=== PATIENT | male | born 1975 | race Caucasian/White ===

== ENCOUNTER 2022-03-14 23:31 | Emergency (ER) | payer OTHER ==
[2022-03-14 23:40] VITALS: BP 132/81
[2022-03-15] MEDS ORDERED: ACETAMINOPHEN 325 MG TABLET PO STA (00:27)
--- NOTE | 2022-03-15 00:31 | ED Physician Documentation ---
PD HPI HEENT - Stated complaint Stated Complaint: MOUTH PX - Chief complaint Chief Complaint: Heent - History obtained from History obtained from: Patient - Additional information Additional information: Patient is a 46-year-old male presenting for evaluation of left upper dental pain that has been present for 4 days. He is been using Motrin with some improvement. He denies fevers Or difficulty swallowing.He does not have a dentist in the area. Review of Systems Constitutional: denies: Fever Nose: denies: Congestion Cardiac: denies: Chest pain / pressure Respiratory: denies: Dyspnea GI: denies: Abdominal Pain : denies: Dysuria Neurologic: denies: Headache PD PAST MEDICAL HISTORY - Present Medications Home Medications: Ambulatory Orders Medication Instructions Recorded Confirmed buprenorphine HCL [Buprenorphine 8 mg SL BID 03/14/22 03/14/22 HCl] clonazePAM [Clonazepam] 0.5 mg PO BID 03/14/22 03/14/22 Amoxicillin 500 mg PO TID #30 cap 03/15/22 - Allergies Allergies/Adverse Reactions: Allergies Allergy/AdvReac Type Severity Reaction Status Date / Time bee venom protein (honey bee) Allergy Anaphylaxis Verified 03/14/22 23:40 PD ED PE NORMAL - General General: Alert and oriented X 3, No acute distress, Well developed/nourished - HEENT HEENT: Atraumatic, Other (No oral abscess or swelling, , Normal speech; Tenderness to tooth 14 and 15 and mild swelling to associated gumline With no fluctuance; No facial swelling or erythema) - Neck Neck: Supple, no meningeal sign - Respiratory Respiratory: No respiratory distress - Derm Derm: Warm and dry - Neuro Neuro: Normal speech Results - Vitals Vitals: Vital Signs - 24 hr 03/14/22 23:37 Temperature 36.4 C L Heart Rate 66 Respiratory 18 Rate Blood Pressure 132/81 H O2 Saturation 98 Oxygen O2 Source Room air PD Medical Decision Making - ED course ED course: Patient presenting for evaluation of dental pain. No visible fluid collection or abscess. No signs of cellulitis or deep space infection. Vital signs appear stable. The patient will be started on p.o. antibiotics. Patient given list of dental resources and advised on need for close follow-up with dentist. He is also aware of strict return precautions. Departure - Departure Disposition: Home, Self Care Clinical Impression: Pain due to dental caries Condition: Stable Instructions: ED Tooth Pain Prescriptions: Amoxicillin 500 mg PO TID #30 cap Comments: I have sent a prescription for an antibiotic to [facility] in [place].Please return to the emergency department with any worsening symptoms. It is very important that you follow-up with a dentist. When it comes to dental problems like yours, the emergency department can only offer a short-term solution to your long-term problem. A couple of low cost options for dental care include: [facility] in [place], calls [phone] for an appointment Or [facility] in [place], call [phone] for an appointment. Discharge Date/Time: 03/15/22 00:44
[2022-03-15] MEDS ORDERED: AMOXICILLIN 250 MG Prepack 6 PO SCH (01:00)
== END 2022-03-15 00:44 | disposition home or self-care (01) ==
LOC: ED 23:31
DX: K02.9 Dental caries, unspecified (principal)
CPT/HCPCS: 99282; 99283; A9270

== ENCOUNTER 2022-10-23 13:27 | Outpatient (CLI) | payer OTHER ==
--- NOTE | 2022-10-23 16:21 | XRAY Report ---
PROCEDURE: Lumbar Spine 2 View INDICATIONS: SCIATICA,LT SIDE TECHNIQUE: 2 views of the lumbar spine were acquired. COMPARISON: None. FINDINGS: Bones: 5 [id number] vertebrae are present. Disc space narrowing at T12-L1, L1-2, and L5-S1. Le ftward curvature of the thoracolumbar spine. There is normal bony alignment. No vertebral body compr ession fractures. No suspicious bony lesions. Soft tissues: Overlying bowel gas pattern is normal. No suspicious soft tissue calcifications. IMPRESSION: 1. Degenerative disc disease at T12-L1, L1-2, and L5-S1. 2. No acute abnormality. Reviewed by: Tono Iqbal on 10/23/2022 4:20 PM PDT Approved by: Tono Iqbal on 10/23/2022 4:20 PM PDT Station ID: [id number]
== END 2022-10-23 13:28 | disposition home or self-care (01) ==
LOC: DI 13:27
PROVIDERS: ATTEND Emergency Medicine
DX: M54.32 Sciatica, left side (principal); M51.35 Other intervertebral disc degeneration, thoracolumbar region; M51.36 Other intervertebral disc degeneration, lumbar region; M51.37 Other intervertebral disc degeneration, lumbosacral region

== ENCOUNTER 2023-01-04 09:45 | Outpatient (CLI) | payer OTHER ==
--- NOTE | 2023-01-04 15:04 | MRI Report ---
PROCEDURE: LUMBAR SPINE WO INDICATIONS: LOW BACK PAIN TECHNIQUE: Noncontrast sagittal T1 spin echo and T2 fast echo, sagittal STIR, axial T1 and T2 fast spin echo thr ough the lumbar spine. In cases with scoliosis, additional coronal T2 fast spin echo may be performe d. COMPARISON: X-ray lumbar spine 10/23/2022 FINDINGS: Image quality: Excellent. Alignment and Curvature: There is normal bony alignment. Bone Marrow: Marrow is of normal overall signal. No acute vertebral body compression fractures. Spinal Cord: Conus medullaris terminates at the L1 level. Visualized cord demonstrates normal signa l and size. Paraspinous Soft Tissues: No paravertebral masses. T12-L1: Intervertebral disc height loss. No central canal or neuroforaminal stenosis. L1-L2: Intervertebral disc height loss. No central canal or neuroforaminal stenosis. L2-L3: Mild disc desiccation. No central canal or neuroforaminal stenosis. L3-L4: Mild disc desiccation. No central canal or neuroforaminal stenosis. L4-L5: Mild disc desiccation. No central canal or neuroforaminal stenosis. L5-S1: Disc desiccation and height loss. Small posterior disc bulge. Facet arthropathy. No central canal stenosis. Mild bilateral neuroforaminal stenosis. IMPRESSION: Mild degenerative changes of the lumbar spine as described above. There is mild bilateral neuroforami nal stenosis at L5-S1. Otherwise, there is no central canal or neuroforaminal stenosis. Reviewed by: Rafael Dolan MD on 01/04/2023 3:03 PM PDT Approved by: Rafael Dolan MD on 01/04/2023 3:03 PM PDT Station ID: [id number]
== END 2023-01-04 09:46 | disposition home or self-care (01) ==
LOC: DI 09:45
PROVIDERS: ATTEND Family Medicine
DX: M51.36 Other intervertebral disc degeneration, lumbar region (principal); M47.817 Spondylosis without myelopathy or radiculopathy, lumbosacral region; M51.37 Other intervertebral disc degeneration, lumbosacral region; M48.07 Spinal stenosis, lumbosacral region

== ENCOUNTER 2023-05-15 14:53 | Outpatient (CLI) | payer OTHER | END 2023-05-15 14:54 | disposition EMS.NT | LOC: EMS 14:53 | DX: M54.50 Low back pain, unspecified (principal) | CPT/HCPCS: A0425; A0429 ==

== ENCOUNTER 2023-05-15 15:24 | Emergency (ER) | payer OTHER ==
[2023-05-15] MEDS: SODIUM CHLORIDE 0.9% IV STA (16:57)
[2023-05-15] MEDS: KETAMINE IV STA (16:57)
[2023-05-15] MEDS: oxyCODONE 5 MG TABLET PO STA (18:12)
--- NOTE | 2023-05-15 18:51 | ED Physician Documentation ---
PD HPI BACK PAIN - Stated complaint Stated Complaint: LOW BACK PX - Chief complaint Chief Complaint: Back Pain - History obtained from History obtained from: Patient, EMS - History of Present Illness Timing - onset: How many days ago (several days) Timing - duration: Days (several) Timing - details: Gradual onset Pain level max: 10 Pain level now: 10 Location: Lower, Right Quality: Pain, Spasm, Sharp Associated symptoms: No: Fever, Weakness, Numbness, Incontinent of urine, Unable to urinate, Hematuria, Incontinent of stool Improves with: Rest Worsened by: Movement Contributing factors: No: Lifting, Twisting, Trauma, Anticoagulated, Cancer, IVDA - Additional information Additional information: 47-year-old male presents to the emergency department with right low back pain. He states that he has had left-sided back pain for about 7 months, recently started having right-sided back pain as well. Radiates down the right leg. Worse with movement, better with rest. Denies any recent trauma. No IV drug use. He was seen at [facility] yesterday, started on steroids and muscle relaxants. States the pain has continued today. Patient is on Buprenorphine, 2 mg at home but not Suboxone. No falls. No trauma. Review of Systems Constitutional: denies: Fever, Chills GI: denies: Vomiting, Diarrhea Skin: denies: Rash Musculoskeletal: denies: Neck pain Neurologic: denies: Focal weakness, Numbness, Headache, Head injury PD PAST MEDICAL HISTORY - Past Medical History Past Medical History: Yes Musculoskeletal: Chronic back pain - Past Surgical History Past Surgical History: Yes - Present Medications Home Medications: Ambulatory Orders Medication Instructions Recorded Confirmed buprenorphine HCL [Buprenorphine 8 mg SL BID 03/14/22 05/15/23 HCl] clonazePAM [Clonazepam] 0.5 mg PO BID 03/14/22 05/15/23 oxyCODONE [Roxicodone] 5 - 10 mg PO Q6H PRN #14 tablet 05/15/23 MDD 6 - Allergies Allergies/Adverse Reactions: Allergies Allergy/AdvReac Type Severity Reaction Status Date / Time bee venom protein (honey bee) Allergy Anaphylaxis Verified 05/15/23 15:43 - Social History Does the pt smoke?: No Smoking Status: Never smoker Does the pt drink ETOH?: No Does the pt have substance abuse?: No - Immunizations Immunizations are current?: Yes - POLST Patient has POLST: No PD ED PE NORMAL - Vitals Vital signs reviewed: Yes - General General: Alert and oriented X 3 - HEENT HEENT: Moist mucous membranes - Neck Neck: Supple, no meningeal sign - Cardiac Cardiac: RRR, Strong equal pulses - Respiratory Respiratory: No respiratory distress, Clear bilaterally - Abdomen Abdomen: Soft, Non tender, Non distended - Back Back: No spinal TTP (No midline tenderness to palpation or percussion. No step- off or deformity. No paraspinal spasm) - Derm Derm: Warm and dry - Extremities Extremities: No edema, No calf tenderness / cord - Neuro Neuro: Alert and oriented X 3, No motor deficit, No sensory deficit, Other (Normal bilateral lower extremity patellar and ankle jerk reflexes. Normal great toe extension bilaterally. no saddle anesthesia) Results - Vitals Vitals: Vital Signs - 24 hr 05/15/23 05/15/23 05/15/23 15:36 17:10 19:04 Temperature 36.0 C L Heart Rate 67 65 81 Respiratory 16 17 18 Rate Blood Pressure 151/77 H 130/86 H 154/82 H O2 Saturation 100 99 98 Oxygen O2 Source Room air PD Medical Decision Making - ED course Complexity details: re-evaluated patient, considered differential (No cauda equina, no spinal epidural abscess, no fracture, no aortic dissection or evidence of aneursym rupture), d/w patient ED course: Patient is a 47-year-old male with right-sided back pain. Started on steroids and muscle relaxants yesterday at [facility]. He is on a low-dose of buprenorphine but not Suboxone. He was given a dose of IV ketamine, pain greatly improved. He was also given a dose of oxycodone. Pain nearly resolved. He ambulates with a cane and appears to be ambulating at his baseline. No evidence of cauda equina, epidural abscess. Will place on pain medication for home. Will have him follow-up with his PCP for further care. Patient ambulated out of the emergency department under his own power with his cane. No focal neurological deficits. Patient counseled regarding signs and symptoms for which I believe and urgent re-evaluation would be necessary. Patient with good understanding of and agreement to plan and is comfortable going home at this time This document was made in part using voice recognition software. While efforts are made to proofread this document, sound alike and grammatical errors may occur. Departure - Departure Disposition: 01 Home, Self Care Clinical Impression: Back spasm Sciatica Qualifiers: Laterality: right Qualified Code(s): M54.31 - Sciatica, right side Condition: Good Instructions: ED Spasm Back No Trauma, ED Sciatica Follow-Up: NIDA NAVARRO, DO [Primary Care Provider] - Within 1 week Prescriptions: oxyCODONE [Roxicodone] 5 - 10 mg PO Q6H PRN #14 tablet MDD 6 PRN Reason: pain Comments: Please follow-up with your doctor for further care. Please return if you worsen. I would continue your medications as previously prescribed. You can discuss with your doctor stopping the buprenorphine. We have sent a prescription for oxycodone to [facility] pharmacy for you. Continue the medications as prescribed by [facility] yesterday. Continue the steroids. I am prescribing a short course of narcotic pain medication for you. These are potentially dangerous and addictive medications that should be used carefully. These medications may constipate you. Take an [id number] stool softener (docusate) twice daily with plenty of water while taking these medications. If you go 24 hours without a bowel movement, take [id number] miralax, per package instructions. Do not drink or drive while taking these medications. If you received narcotic or sedating medications while in the emergency department, do not drive for 24 hours. Store this medication in a safe, secure place and out of reach of children. It is a violation of federal law to give or sell this medication to another person or to use in a manner other than prescribed. The ED will not refill narcotic prescriptions, including prescriptions lost or stolen. To dispose of unwanted medications: 1. [facility] at [address] in [place] has a medication drop box. They accept prescription medications (in pill form) Wednesday through Wednesday 9:00 a.m. to 5:00 p.m. 2. [facility] [employer] accepts prescription medications (in pill form only) for disposal year round. Call for more information. 3. Contact the [facility] for the next [facility] sponsored prescription drug collection event. , [phone], or [phone]; Discharge Date/Time: 05/15/23 19:03
[2023-05-15] MEDS: oxyCODONE/ACET 5/325 Prepack 4 PO STA (18:58)
[2023-05-15 19:10] VITALS: BP 154/82; O2SAT 98
--- NOTE | 2023-05-16 10:22 | ED Physician Documentation ---
ED Addendum - Addendum Addendum: 05/16/23 10:21 Pharmacy at [facility] called and they do not have oxycodone in stock. A prescription for oxycodone from [facility] was canceled and [facility]
== END 2023-05-15 19:03 | disposition home or self-care (01) ==
LOC: EDUNIT# → ED 15:24
DX: M54.41 Lumbago with sciatica, right side (principal)
CPT/HCPCS: 96365; 99283; 99284; A9270